=== PATIENT | female | born 1950 | race African-American/Black ===

== ENCOUNTER 2023-11-05 08:56 | Emergency (ER) | payer MEDICAID ==
[~2023-11-05] VITALS: Ht 167.6 cm; Wt 55.0 kg
[2023-11-05] MEDS ORDERED: NITROFURANTOIN (09:00)
[2023-11-05] MEDS ORDERED: trazodone (09:00)
[2023-11-05] MEDS ORDERED: acetaminophen (09:00)
[2023-11-05] MEDS ORDERED: loratadine (09:00)
[2023-11-05] MEDS ORDERED: albuterol (09:00)
[2023-11-05 09:01] VITALS: O2SAT 99
[2023-11-05] MEDS: PREDNISONE 20MG TABLET PO STA (09:36)
[2023-11-05 09:49] VITALS: PULSE 80; RESP 24
[2023-11-05] MEDS: IPRATROPIUM BROMIDE (0.02%) 0.5MG/2.5ML NEB HHN STA (09:49)
[2023-11-05] MEDS: ALBUTEROL (0.083%) 2.5MG/3ML NEB HHN STA (09:49)
[2023-11-05 09:52] LABS: HEMATOCRIT. 41.3 % (36.0-48.0); HEMOGLOBIN. 13.9 g/dL (12.0-16.0); MEAN CORPUSCULAR HEMOGLOBIN 29.9 pg (28.0-32.0); MEAN CORPUSCULAR HGB CONC 33.7 g/dL (31.0-37.0); MEAN CORPUSCULAR VOLUME 88.7 fL (81.0-99.0); MEAN PLATELET VOLUME 7.4 fl (7.4-10.4); PLATELET 293 x1000/uL (130-400); RED BLOOD CELL COUNT 4.66 mill/uL (4.2-5.4); RED CELL DISTRIBUTION WIDTH 13.6 % (11.6-14.6); WHITE BLOOD COUNT 18.1 x1000/uL (4.5-11.0)
[2023-11-05 09:53] LABS: DIFFERENTIAL COMMENT 1
[2023-11-05 10:03] LABS: CARBON DIOXIDE 27 mEq/L (21-32); CHLORIDE 104 mEq/L (98-107); POTASSIUM 3.9 mEq/L (3.5-5.1); SODIUM 136 mEq/L (136-145)
[2023-11-05 10:08] LABS: CREATININE 0.9 mg/dL (0.6-1.0); GLUCOSE 120 mg/dL (70-105)
[2023-11-05 10:09] LABS: UREA NITROGEN BLOOD 9 mg/dL (9-23)
[2023-11-05 10:10] LABS: ALANINE AMINOTRANSFERASE 15 IU/L (10-49); ALBUMIN 4.2 g/dL (3.2-4.8); ASPARTATE AMINOTRANSFERASE 22 IU/L (<34)
[2023-11-05 10:11] LABS: BILIRUBIN TOTAL 0.5 mg/dL (0.1-1.0); PROTEIN TOTAL 7.3 g/dL (6.0-8.3); TROPONIN I HIGH SENSITIVITY 5 ng/L (3.0-34)
[2023-11-05 10:25] LABS: CALCIUM 10.2 mg/dL (8.7-10.4)
[2023-11-05 10:49] LABS: PLATELET ESTIMATE NORMAL
[2023-11-05 13:02] VITALS: BP 104/63; PULSE 81; RESP 21; TEMP 98.4
== END 2023-11-05 13:06 | disposition home or self-care (01) ==
LOC: EDSEX 08:56 → ER 10:23
DX: J44.1 Chronic obstructive pulmonary disease with (acute) exacerbation (principal); Z79.899 Other long term (current) drug therapy
CPT/HCPCS: 80053; 83880; 85025; 84484; 87804 ×2; 36415; 71045; 93005; 94644; 99285; J7512; Z7610 ×5